=== PATIENT | male | born 1965 | race Two or more races ===

== ENCOUNTER 2025-07-28 03:11 | Emergency (ER) | payer BC ==
[~2025-07-28] VITALS: Ht 185.4 cm; Wt 89.8 kg
[2025-07-28] MEDS ORDERED: NEXIUM 24HR20 MG (03:24)
[2025-07-28] MEDS ORDERED: ORPHENADRINE CITRATE 30 MG/ML AMPUL IM STA (04:08)
[2025-07-28] MEDS ORDERED: DEXAMETHASONE SODIUM PHOSPHATE 4 MG/ML VIAL IM STA (04:09)
[2025-07-28] MEDS ORDERED: KETOROLAC TROMETHAMINE 60 MG VIAL IM STA (04:09)
[2025-07-28] MEDS ORDERED: ACETAMINOPHEN 500 MG GEL..CAP PO STA (04:10)
[2025-07-28] MEDS ORDERED: ACETAMINOPHEN 500 MG GEL..CAP PO ONE (04:11)
[2025-07-28] MEDS ORDERED: ORPHENADRINE CITRATE 30 MG/ML AMPUL ONE (04:12)
[2025-07-28] MEDS ORDERED: KETOROLAC TROMETHAMINE 60 MG VIAL IM ONE (04:12)
[2025-07-28] MEDS ORDERED: DEXAMETHASONE SODIUM PHOSPHATE 4 MG/ML VIAL ONE (04:13)
== END 2025-07-28 04:34 | disposition home or self-care (01) ==
LOC: ER 03:11
DX: G89.11 Acute pain due to trauma (principal); M54.89 Other dorsalgia; M62.830 Muscle spasm of back